=== PATIENT | male | born 1970 ===

== ENCOUNTER 2016-10-04 15:46 | Emergency (ER) | payer MEDICAID ==
[2016-10-04 16:19] VITALS: RESP 18; TEMP 99.4; BMI 35.3
[2016-10-04] MEDS ORDERED: Labetalol 5 mg/ml Inj 20ML IV STA (17:07)
--- NOTE | 2016-10-04 17:28 | ED PDOC ---
Arrival/HPI - General Historian: Patient - History of Present Illness Time/Duration: < week Symptom Onset: Gradual Symptom Course: Worsening Quality: Pressure, Tightness Severity Level: 8 - General Chief Complaint: Headache Time Seen by Provider: 10/04/16 16:21 - History of Present Illness Narrative History of Present Illness (Text): 10/04/16 17:15 45 year old male with past medical history of hypertension presents to [facility] with headache, dizziness and blurred vision of 3 days. Patient reports his symptoms started with dizziness on Tuesday. Patient did not seek medical attention at that time hoping that it'll resolved by itself. He believes that his symptoms are caused by his high blood pressure as this similar dizziness has happened in the past before. Patient checks his blood pressure occasionally at local pharmacies and they have been in the 160 to 170 SBP. Patient only takes lisinopril/HCT at home and he claims to be compliant with it. Patient admits to social alcohol consumption and denies tobacco or other drug use. He further denies fever, chills, shortness of breath, chest pain, abdominal pain, nausea, or vomiting. (Washington Whalen) Past Medical History - Provider Review Nursing Documentation Reviewed: Yes - Cardiac Hx Cardiac Disorders: Yes Hx Hypertension: Yes - Psychiatric Hx Substance Use: No Family/Social History - Physician Review Nursing Documentation Reviewed: Yes Family/Social History: CAD/[place] (mother had [place] in her late 50s) Smoking Status: Never Smoked Hx Alcohol Use: No Hx Substance Use: No Allergies/Home Meds Allergies/Adverse Reactions: Allergies No Known Allergies Allergy (Verified 10/04/16 16:19) Home Medications: Home Meds Medication Instructions Recorded Confirmed Lisinopril/Hydrochlorothiazide 1 each PO DAILY 10/04/16 10/04/16 [Lisinopril-Hctz 20-12.5 mg Tab] Review of Systems - Physician Review All systems were reviewed & negative as marked: Yes - Review of Systems Constitutional: Normal. absent: Fatigue, Weight Change, Fevers Eyes: Vision Changes, Photophobia Respiratory: Normal. absent: SOB, Cough, Wheezing Cardiovascular: Normal. absent: Chest Pain, Palpitations, Syncope Gastrointestinal: Normal. absent: Constipation, Diarrhea, Nausea, Vomiting Genitourinary Male: Normal. absent: Frequency Musculoskeletal: Normal. absent: Back Pain, Joint Swelling Skin: Normal. absent: Rash, Skin Lesions, Laceration, Cellulitis Neurological: Normal, Headache, Dizziness. absent: Focal Weakness, Speech Changes, Facial Droop, Seizure Endocrine: Normal. absent: Diaphoresis, Polyuria Psychiatric: Normal. absent: Anxiety, Depression Physical Exam Vital Signs Reviewed: Yes Temperature: Afebrile Blood Pressure: Hypertensive Pulse: Tachycardic Respiratory Rate: Normal Appearance: Positive for: Well-Appearing, Comfortable Pain Distress: Mild Mental Status: Positive for: Alert and Oriented X 3 - Systems Exam Head: Present: Atraumatic, Normocephalic. No: Swelling Pupils: Present: PERRL Extroacular Muscles: Present: EOMI Conjunctiva: Present: Normal Mouth: Present: Moist Mucous Membranes Neck: Present: Normal Range of Motion Respiratory/Chest: Present: Clear to Auscultation, Good Air Exchange. No: Respiratory Distress, Accessory Muscle Use, Wheezes Cardiovascular: Present: Regular Rate and Rhythm, Normal S1, S2, Peripheal Pulses Present. No: Murmurs Abdomen: Present: Normal Bowel Sounds, Other (obesed abdomen). No: Tenderness, Distention, Peritoneal Signs Back: Present: Normal Inspection. No: CVA Tenderness Upper Extremity: Present: Normal Inspection. No: Cyanosis, Edema Lower Extremity: Present: Normal Inspection. No: Edema Neurological: Present: GCS=15, CN II-XII Intact, Speech Normal Skin: Present: Warm, Dry, Normal Color. No: Rashes Psychiatric: Present: Alert, Oriented x 3, Normal Insight, Normal Concentration Vital Signs Temp Pulse Resp BP Pulse Ox 10/04/16 18:25 89 18 148/91 H 98 10/04/16 17:33 89 18 135/94 H 95 10/04/16 17:32 93 H 18 135/94 H 95 10/04/16 17:31 88 18 143/100 H 96 10/04/16 17:30 92 H 18 134/96 H 95 10/04/16 17:29 85 18 150/105 H 96 10/04/16 17:24 91 H 18 150/109 H 96 10/04/16 16:14 99.4 F 107 H 18 171/117 H 96 Medical Decision Making Re-evaluation Time: 18:05 Reassessment Condition: Improved ED Course and Treatment: 10/04/16 17:50 -IV Labetalol -CT Head -Monitor vitals -Reassess 10/04/16 18:03 -Headache and BP (139/94) improved -CT head showed no acute pathologies 10/04/16 18:29 Patient was instructed to follow up with PMD of choice for medication adjustments. Patient was educated on low salt diet and other healthy lifestyle modifications. (Washington Whalen) The pt tells me he has had an intermittent headache for the last 2 to 3 months but it has been fairly constant for the last couple days. usually it seems to resolve after otc medication. it is also assoc w some blurred vision in both eyes. he has been taking his BP frequent also over this same time period and it seems to be consistently high, up to 160's over 100's. today after receiving 10mg labetalol his BP came down and he reported his headache nearly completely resolved along with this. his neuro exam and head CT are normal. he is to f/u w a pmd this week and return if worse. (Neftali Huerta) - RAD Interpretation Radiology Orders: 10/04/16 17:06 HEAD W/O CONTRAST [CT] Stat - EKG Interpretation EKG Interpretation (Text): 10/04/16 16:45 NSR at 88 bpm, no acute ST elevation appreciated. Read by me. (Washington Whalen) - Medication Orders Current Medication Orders: Discontinued Medications Labetalol HCl (Trandate) 20 mg IV STAT STA Stop: 10/04/16 17:08 Last Admin: 10/04/16 17:33 Dose: 10 mg MAR Pulse and Blood Pressure Document 10/04/16 17:33 JOL (Rec: 10/04/16 17:34 JOL [id number]) Pulse Pulse Rate (60-90) 91 Blood Pressure Blood Pressure (100/60-150/90) 150/109 eMAR Start Stop Document 10/04/16 17:33 JOL (Rec: 10/04/16 17:34 [id number] [id number]) Intravenous Solution Start Date 10/04/16 Start Time 17:24 End Date 10/04/16 End time 17:29 Total Infusion Time 5 - PA / AUTO PORTER / Resident Statement / has examined the patient and agrees with the treatment plan. Disposition/Present on Arrival - Present on Arrival Any Indicators Present on Arrival: No History of DVT/PE: No History of Uncontrolled Diabetes: No Urinary Catheter: No History of Decub. Ulcer: No History Surgical Site Infection Following: None - Disposition Have Diagnosis and Disposition been Completed?: Yes Disposition Time: 18:24 - Disposition Diagnosis: Headache, High blood pressure Disposition: HOME/ ROUTINE Condition: STABLE Discharge Instructions (ExitCare): Low Sodium Diet (ED), Hypertensive Crisis ( ED) Additional Instructions: Please follow up with a primary doctor. Return to the ER for any worsening symptoms or for any other concerns. Referrals: [facility] [Outside] - Follow up with primary Goran Sanchez MD [Staff Provider] - Follow up with primary
[2016-10-04 17:39] VITALS: PULSE 89
--- NOTE | 2016-10-04 18:03 | CT ---
PROCEDURE: CT HEAD WITHOUT CONTRAST. HISTORY: new onset headache 2/2 hypertension COMPARISON: None available. TECHNIQUE: Axial computed tomography images were obtained through the head/brain without intravenous contrast. Radiation dose: Total exam DLP = 774 mGy-cm. This CT exam was performed using one or more of the following dose reduction techniques: Automated exposure control, adjustment of the mA and/or kV according to patient size, and/or use of iterative reconstruction technique. FINDINGS: HEMORRHAGE: No intracranial hemorrhage. BRAIN: No mass effect or edema. No atrophy or chronic microvascular ischemic changes. VENTRICLES: Unremarkable. No hydrocephalus. CALVARIUM: Unremarkable. PARANASAL SINUSES: Unremarkable as visualized. No significant inflammatory changes. MASTOID AIR CELLS: Unremarkable as visualized. No inflammatory changes. OTHER FINDINGS: None. IMPRESSION: Normal CT of the Head.
[2016-10-04 18:27] VITALS: BP 148/91; O2SAT 98
--- NOTE | 2016-10-05 09:19 | CARD ---
APPROVED REPORT EKG Measurement Heart [id number] <Conclusion> Normal sinus rhythm Voltage criteria for left ventricular hypertrophy Nonspecific T wave abnormality PRWP V 1 - 4
== END 2016-10-04 18:39 | disposition home or self-care (01) ==
LOC: MERGE 15:46 → ED 15:46
DX: I10 Essential (primary) hypertension (principal); R51 Headache; Z82.49 Family history of ischemic heart disease and other diseases of the circulatory system

== ENCOUNTER 2018-10-15 09:09 | Emergency (ER) | payer MEDICAID ==
[2018-10-15 09:09] VITALS: BMI 35.3
--- NOTE | 2018-10-15 09:36 | ED PDOC ---
Arrival/HPI - General Chief Complaint: Dizziness/Lightheaded Time Seen by Provider: 10/15/18 09:33 Historian: Patient - History of Present Illness Narrative History of Present Illness (Text): 10/15/18 10:03 48 y/o male with PMH of vertigo and HTN presents to the ED c/o vertigo x 8 hours. Pt awoke this morning at 3am from nausea and vomited x 3, nonbloody, nonbilious. Describes the dizziness as room spinning, worse when he moves his head quickly to the left. Associated nausea, left sided tinnitus, and photophobia. Pt experienced this once before a few months ago. Symptoms resolved in 3-4 days with meclizine but he never followed up with a specialist. Denies fever, chills, recent URI, eye pain, ear pain, hearing loss, ear fullness, chest pain, SOB, vision changes, headache, neck pain/stiffness, abdominal pain, diarrhea, numbness, weakness, paresthesias, difficulty speaking, difficulty walking, facial droop, or any other associated complaints. Past Medical History - Provider Review Nursing Documentation Reviewed: Yes - Infectious Disease Hx of Infectious Diseases: None - Cardiac Hx Cardiac Disorders: Yes Hx Hypertension: Yes - Psychiatric Hx Substance Use: No - Anesthesia Hx Anesthesia: No Hx Anesthesia Reactions: No Hx Malignant Hyperthermia: No Family/Social History - Physician Review Nursing Documentation Reviewed: Yes Family/Social History: No Known Family HX Smoking Status: Never Smoked Hx Alcohol Use: No Hx Substance Use: No Allergies/Home Meds Allergies/Adverse Reactions: Allergies No Known Allergies Allergy (Verified 10/04/16 16:19) Home Medications: Home Meds Medication Instructions Recorded Confirmed Lisinopril/Hydrochlorothiazide 1 each PO DAILY 10/04/16 10/15/18 [Lisinopril-Hctz 20-12.5 mg Tab] Review of Systems - Review of Systems Constitutional: Normal. absent: Fevers Eyes: Photophobia. absent: Vision Changes ENT: Tinnitus. absent: Hearing Changes, Sore Throat, Rhinorrhea, Epistaxis, Sinus Congestion Respiratory: Normal. absent: SOB, Cough Cardiovascular: Normal. absent: Chest Pain, Palpitations, Syncope Gastrointestinal: Nausea, Vomiting. absent: Abdominal Pain, Constipation, Diarrhea, Appetite Changes Genitourinary Male: Normal. absent: Dysuria, Frequency Musculoskeletal: Normal. absent: Back Pain, Neck Pain Skin: absent: Rash Neurological: Dizziness. absent: Headache, Focal Weakness, Gait Changes, Speech Changes, Facial Droop Physical Exam Vital Signs Reviewed: Yes Vital Signs Temp Pulse Resp Pulse Ox 10/15/18 09:24 98.1 F 65 18 98 Temperature: Afebrile Blood Pressure: Normal Pulse: Regular Respiratory Rate: Normal Appearance: Positive for: Well-Appearing, Non-Toxic, Comfortable Pain Distress: None Mental Status: Positive for: Alert and Oriented X 3 - Systems Exam Head: Present: Atraumatic, Normocephalic Pupils: Present: PERRL Extroacular Muscles: Present: EOMI (with mild horizontal nystagmus) Conjunctiva: Present: Normal Ears: Present: Normal, NORMAL TM, Normal Canal Mouth: Present: Moist Mucous Membranes Pharnyx: Present: Normal. No: ERYTHEMA, EXUDATE, TONSILS ENLARGED Nose (External): Present: Atraumatic Nose (Internal): Present: Normal Inspection Neck: Present: Normal Range of Motion. No: Meningeal Signs Respiratory/Chest: Present: Clear to Auscultation, Good Air Exchange. No: Respiratory Distress, Accessory Muscle Use Cardiovascular: Present: Regular Rate and Rhythm, Normal S1, S2, Peripheal Pulses Present Abdomen: Present: Normal Bowel Sounds. No: Tenderness, Distention, Peritoneal Signs, Rebound, Guarding Back: Present: Normal Inspection. No: CVA Tenderness Upper Extremity: Present: Normal Inspection, Normal ROM, NORMAL PULSES, Neurovascularly Intact, Capillary Refill < 2s. No: Cyanosis, Edema, Temperature Abnormalties Lower Extremity: Present: Normal Inspection, NORMAL PULSES, Normal ROM, Neurovascularly Intact, Capillary Refill < 2 s. No: Edema, Temperature Abnormalties Neurological: Present: GCS=15, CN II-XII Intact, Speech Normal, Motor Func Grossly Intact, Normal Sensory Function, Normal Cerebellar Funct, Gait Normal, Memory Normal Skin: Present: Warm, Dry, Normal Color. No: Rashes Lymphatic: No: Cervical Adenopathy Psychiatric: Present: Alert, Oriented x 3, Normal Insight, Normal Concentration, Normal Affect, Normal Mood Medical Decision Making ED Course and Treatment: 10/15/18 10:11 Initial Plan: * CBC, CMP * Coags * Mg, Phos * Troponin * CT Head * EKG * CXR * IVF * Meclizine * Reassess and Disposition EKG shows NSR at 64 with normal intervals without ischemic changes. Troponin negative. Bloodwork reviewed, unremarkable CT Head negative CXR negative Patient reports resolution of symptoms after fluids and Meclizine. No vomiting in ED. Pt has no focal neurological deficits or complaints of palpitations, SOB, chest pain. Advised ENT, neurology, and PMD followup. Diagnostic testing results and plan of care discussed with patient. Strict instructions given regarding prescription use, importance of followup, and signs/symptoms to return to ER including intractable vomiting, chest pain, SOB, or any other new/worsening symptoms. Pt verbalized understanding of discussion. Patient is A&Ox3, ambulating with steady gait, with vital signs stable for discharge. - Lab Interpretations Lab Results: 10/15/18 10:09 10/15/18 10:09 Lab Results 10/15/18 10:09: Sodium 139, Potassium 4.0, Chloride 102, Carbon Dioxide 30, Anion Gap 11, BUN 17, Creatinine 0.8, Est GFR ( Amer) > 60, Est GFR (Non- Af Amer) > 60, Random Glucose 98, Calcium 8.8, Phosphorus 3.2, Magnesium 1.9, Total Bilirubin 0.5, AST 28, ALT 30, Alkaline Phosphatase 101, Troponin I < 0.01, Total Protein 7.5, Albumin 4.2, Globulin 3.3, Albumin/Globulin Ratio 1.3 10/15/18 10:09: PT 13.8 H, INR 1.22, APTT 39.5 H 10/15/18 10:09: WBC 5.1, RBC 5.29, Hgb 14.9, Hct 44.1, MCV 83.4, MCH 28.2, MCHC 33.8, RDW 13.4, Plt Count 237, MPV 10.0, Neut % (Auto) 67.9, Lymph % (Auto) 24.6, [place] % (Auto) 6.1 H, Eos % (Auto) 1.0 L, Baso % (Auto) 0.4, Lymph # (Auto) 1.2, [place] # (Auto) 0.3, Eos # (Auto) 0.1, Baso # (Auto) 0.02, Absolute Neuts (a uto) 3.43 I have reviewed the lab results: Yes - RAD Interpretation Narrative RAD Interpretations (Text): 10/15/18 11:28 CT Head: FINDINGS: HEMORRHAGE: No intracranial hemorrhage. BRAIN: No mass effect or edema. No atrophy or chronic microvascular ischemic changes. VENTRICLES: Unremarkable. No hydrocephalus. CALVARIUM: Unremarkable. PARANASAL SINUSES: Unremarkable as visualized. No significant inflammatory changes. MASTOID AIR CELLS: Unremarkable as visualized. No inflammatory changes. OTHER FINDINGS: None. IMPRESSION: No acute findings CXR: FINDINGS: LUNGS: No active pulmonary disease. PLEURA: No significant pleural effusion identified, no pneumothorax apparent. CARDIOVASCULAR: No aortic atherosclerotic calcification present. Normal cardiac size. No pulmonary vascular congestion. OSSEOUS STRUCTURES: No significant abnormalities. VISUALIZED UPPER ABDOMEN: Normal. OTHER FINDINGS: None. IMPRESSION: No active disease. Multi Media Specialist: Radiologist - EKG Interpretation EKG Interpretation (Text): Rate 64; NSR; Normal intervals; No STEMI or other signs of acute ischemia Interpreted by ED Physician: Yes Type: 12 lead EKG Disposition/Present on Arrival - Present on Arrival Any Indicators Present on Arrival: No History of DVT/PE: No History of Uncontrolled Diabetes: No Urinary Catheter: No History of Decub. Ulcer: No History Surgical Site Infection Following: None - Disposition Have Diagnosis and Disposition been Completed?: Yes Diagnosis: Vertigo Disposition: HOME/ ROUTINE Disposition Time: 11:30 Patient Plan: Discharge Condition: IMPROVED Discharge Instructions (ExitCare): Vertigo (a Type of Dizziness), Labyrinthitis Additional Instructions: Meclizine every 12 hours as needed Increase fluids Rest, no strenuous activity Followup with ENT within 2 days Return to ER with any new/worsening symptoms Prescriptions: Meclizine [Meclizine*] 25 mg PO Q12 PRN #8 tab PRN Reason: vertigo Referrals: [facility] [place] [Outside] - Follow up with primary Oliver Wallace MD [Staff Provider] - Follow up with primary Carlos Hollis DO [Staff Provider] - Follow up with primary Anne Hart MD [Medical Doctor] - Follow up with primary Forms: [employer] (Chinese), WORK NOTE
[2018-10-15] MEDS ORDERED: Sodium Chloride 0.9% 1,000 ML IV STA (09:51)
[2018-10-15 10:20] LABS: BASO # 0.02 K/mm3 (0.0-2.0); BASO % 0.4 % (0.0-3.0); EOS # 0.1 (0.0-0.7); HEMOGLOBIN 14.9 g/dL (14.0-18.0); LYMPH # 1.2 (1.2-3.4); LYMPH % 24.6 % (22.0-35.0); MEAN CELL VOLUME 83.4 fl (80.0-105.0); MEAN CORPUSCULAR HEMOGLOBIN 28.2 pg (25.0-35.0); MEAN CORPUSCULAR HGB CONC 33.8 g/dl (31.0-37.0); MONO # 0.3 (0.1-0.6); MONO % 6.1 % (1.0-6.0); RBC 5.29 10^6/uL (3.5-6.1); RED CELL DISTRIBUTION WIDTH 13.4 % (11.5-14.5); WHITE BLOOD COUNT 5.1 10^3/uL (4.5-11.0)
[2018-10-15 10:27] LABS: INR 1.22; PARTIAL THROMBOPLASTIN TIME 39.5 Seconds (26.9-38.3); PROTHROMBIN TIME 13.8 SECONDS (9.4-12.5)
[2018-10-15 10:34] LABS: ALB/GLOB RATIO 1.3 (1.1-1.8); ALBUMIN 4.2 g/dL (3.0-4.8); ALT/SGPT 30 U/L (7-56); AST/SGOT 28 U/L (17-59); BLOOD UREA NITROGEN 17 mg/dL (7-21); CALCIUM 8.8 mg/dL (8.4-10.5); GFR NON-AFRICAN AMERICAN > 60
--- NOTE | 2018-10-15 10:37 | CT ---
Date of service: 10/15/2018 PROCEDURE: CT HEAD WITHOUT CONTRAST. HISTORY: headache COMPARISON: 10/04/2016 TECHNIQUE: Axial computed tomography images were obtained through the head/brain without intravenous contrast. Radiation dose: Total exam DLP = 812.35 mGy-cm. This CT exam was performed using one or more of the following dose reduction techniques: Automated exposure control, adjustment of the mA and/or kV according to patient size, and/or use of iterative reconstruction technique. FINDINGS: HEMORRHAGE: No intracranial hemorrhage. BRAIN: No mass effect or edema. No atrophy or chronic microvascular ischemic changes. VENTRICLES: Unremarkable. No hydrocephalus. CALVARIUM: Unremarkable. PARANASAL SINUSES: Unremarkable as visualized. No significant inflammatory changes. MASTOID AIR CELLS: Unremarkable as visualized. No inflammatory changes. OTHER FINDINGS: None. IMPRESSION: No acute findings
[2018-10-15 10:44] LABS: TROPONIN I < 0.01 ng/mL
--- NOTE | 2018-10-15 11:19 | RAD ---
Date of service: 10/15/2018 HISTORY: dizzy COMPARISON: No prior. TECHNIQUE: 1 view obtained. FINDINGS: LUNGS: No active pulmonary disease. PLEURA: No significant pleural effusion identified, no pneumothorax apparent. CARDIOVASCULAR: No aortic atherosclerotic calcification present. Normal cardiac size. No pulmonary vascular congestion. OSSEOUS STRUCTURES: No significant abnormalities. VISUALIZED UPPER ABDOMEN: Normal. OTHER FINDINGS: None. IMPRESSION: No active disease.
[2018-10-15 11:35] VITALS: BP 129/76; PULSE 80; RESP 18; TEMP 98.6; O2SAT 98
--- NOTE | 2018-10-15 17:51 | CARD ---
APPROVED REPORT Date of service: 10/15/2018 EKG Measurement Heart [id number] <Conclusion> Normal sinus rhythm Moderate voltage criteria for LVH, may be normal variant Borderline ECG
== END 2018-10-15 11:51 | disposition home or self-care (01) ==
LOC: ED 09:09
DX: R42 Dizziness and giddiness (principal); I10 Essential (primary) hypertension
CPT/HCPCS: 70450; 71045; 80053; 83735; 84100; 84484; 85025; 85610; 85730; 93005; 99285; J7030